=== PATIENT | male | born 1985 | race Caucasian/White ===

== ENCOUNTER 2017-03-07 12:58 | Emergency (ER) | payer OTHER ==
[~2017-03-07] VITALS: Ht 172.7 cm; Wt 77.3 kg
[~2017-03-07 12:58] MED LIST: ERYT1OIN7 AFFECT_EYE; KETO5DRO68 AFFECT_EYE
[2017-03-07 13:18] VITALS: BP 128/74; PULSE 68; RESP 10; O2SAT 99
--- NOTE | 2017-03-07 15:54 | ED.REPORT ---
HPI- Male Date of Service Mar 07, 2017 ED Provider: Edmund Cleveland Clay KRAUSE Pt is a 31 y/o male presenting to the ED with his girlfriend due to lump on right testicle onset 1 year ago. The lump has been there for 1 year and there are no acute changes. The patient came to the ED today because his PCP's office told him to because there were no immediate future appointment openings. He c/o associated right testicular pain. He denies testicular swelling, fever, chills , weight loss, weight gain. The patient has been attempting to have a child with his girlfriend for the past year without success. His girlfriend states he has been experiencing intermittent abdominal pain, nausea, and vomiting for the past year but he does not endorse this. Nursing Notes Stated Complaint: POSS TESTICULAR CANCER Chief Complaint: Male Abdominal Pain Nursing Notes Reviewed: Yes Allergies: Coded Allergies: No Known Allergies (Unverified , 10/26/16) Scheduled Erythromycin Ophth Oint (Erythromycin Ophth Oint) 3.5 Gm Oint...g. 1 APPL AFFECT _EYE TID Ketotifen Fumarate (Zaditor) 5 Ml Drops 1 DROP AFFECT_EYE Q12 General Time Seen by MD: 15:18 Chief Complaint Other (right test lump) Hx Obtained From: Patient Arrived By: Walk-in Onset Occurred: More than a week ago... (>6 months) Symptom Duration: Since onset Location: : Testicle right Quality: Painful Severity: Current: No pain currently Severity: Maximum: Mild Similar Sx Previous: No Past Medical History Past Medical History Denies Past Surgical History denies Smoking History Current Every Day Smoker Social History Alcohol Use: "Social" Drug Use: Denies drug use Ambulatory Status Independent Review of Systems Review of Systems Note: + lump r testicle Constitutional: Denies: Chills, Fever, Recent wt loss GI: Denies: Abdominal pain, Nausea, Vomiting Male: Reports Testicular pain, Denies Testicular swelling Complete sys rev & neg: except as marked. Physical Exam Initial Vital Signs Vital Signs (First) Date Time Temp Pulse Resp B/P Pulse Ox O2 Delivery O2 Flow Rate FiO2 03/07/17 13:18 36.8 68 10 128/74 99 Room Air Initial VS: Reviewed, Vital signs normal Head / Eyes: Atraumatic, Normocephalic, PERRL ENT: Mucous membranes moist, Conjunctiva normal, No scleral icterus Neck: Supple, Full range of motion Respiratory: No respiratory distress Cardiovascular: Intact distal pulses Abdomen / GI: Soft, Non-tender, No guarding, No rebound, No distention Extremities: Vascular intact, Neuro intact, No swelling, No tenderness Skin: Warm, Dry, No cyanosis Neurologic: Alert, Oriented, Nonfocal Psychiatric: Mood/affect normal, Behavior normal, Normal thought content Male Genitourinary: Atraumatic, Penis NL, No lesions or rash Anterior right testicle with subjective tenderness over fingertip-sized area, no mass palpated No overlying skin changes. Interpretation & Diagnostics Interpretation & Diagnostics: Testicular US: IMPRESSION: No evidence for testicular mass is identified. No epididymal abnormality is seen either. Cause of palpable abnormality is not identified. Dictated by: Yobany Jane M.D. on 03/07/2017 at 17:21 Approved by: Yobany Jane M.D. on 03/07/2017 at 17:23 Re-Eval/Medical Decision Med Decision/Clinical Course No evidence orchitis or epididymitis on ultrasound. Patient does not have the classic appearance of either of these diagnoses, and rather appears to be anxious. Tenderness is very mild and appears to have been going on for approximately one year. Denies abnormal discharge. No groin lymphadenopathy noted. GC chlamydia test pending. Patient notified that if returns positive he will be notified and treated Re-Evaluation/Progress : Time of Eval: 17:27 Re-Evaluation/Progress Note: Pt rechecked. Informed pt of plan for treatment. Pt understands and agrees with plan for treatment. F/U instructions and RTER warnings given. All questions addressed. Counseled Regarding: Diagnosis, Need for follow-up, When/why to return to ED Discharge & Departure Impression: Primary Impression: Right testicular pain Disposition: Home Discharge Condition All VS Reviewed: Yes Condition: Stable Patient Instructions: Testicular Self-examination (ED) Additional Instructions: The ultrasound showed no abnormalities. Take 800 mg Ibuprofen every 8 hours as needed for pain. I recommend you meet with your primary care doctor for further outpatient evaluation. Return to the emergency department for severe testicular pain, high fever, testicular swelling, or for other concerning symptoms. Referrals: Mathieu Mendieta DO (PCP) Scribe Attestation Portions of this note were transcribed by J Carlos Washington. I, Dr. Cleveland personally performed the history, physical exam and medical decision-making; I reviewed and confirmed the accuracy of the information in the transcribed note. Signed by Rosa Caballero, 03/07/17 - 163 copies to: Mathieu Mendieta Gary R DO Mar 07, 2017 15:54 J CARLOS WASHINGTON Mar 07, 2017 15:59
[2017-03-07 16:17] VITALS: BP 130/62; PULSE 66; RESP 20; O2SAT 98
--- NOTE | 2017-03-07 17:25 | DRSVH ---
PROCEDURE: US TESTICULAR AND SCROTAL SONOGRAM ([id number]) INDICATIONS: testicular mass TECHNIQUE: Real-time scanning was performed of the scrotum and testicles, with image documentation. Color and p ulse Doppler interrogation was performed of both testicles. COMPARISON: None. FINDINGS: Right: Testicle is normal in size at 5.0 x 3.2 x 2.3 cm, and homogenous in echotexture. Epididymis is normal in overall size and morphology. No hydrocele or varicoceles. Overlying scrotal skin is no rmal in thickness. A single small calcification is present of doubtful clinical significance. Left: Testicle is normal in size at 5.0 x 3.4 x 2.3 cm, and homogeneous in echotexture. Epididymis is normal in overall size and morphology. No hydrocele or varicoceles. Overlying scrotal skin is no rmal in thickness. Doppler: Color and pulse Doppler demonstrate normal and symmetric arterial flow in both testicles. IMPRESSION: No evidence for testicular mass is identified. No epididymal abnormality is seen either. Cause of palpable abnormality is not identified. Dictated by: Yobany Jane M.D. on 03/07/2017 at 17:21 Approved by: Yobany Jane M.D. on 03/07/2017 at 17:23
== END 2017-03-07 17:46 | disposition home or self-care (01) ==
LOC: SED 12:58
DX: N50.811 Right testicular pain (principal); F17.200 Nicotine dependence, unspecified, uncomplicated